=== PATIENT | female | born 1970 | race Two or more races ===

== ENCOUNTER → 2024-07-21 | Outpatient (CLI) | payer MEDICAID, SELFPAY ==
--- NOTE | 2024-07-21 15:22 | XR_ITS ---
EXAMINATION: Cervical spine, 5 views Technique: Cervical spine AP, AP odontoid, lateral, bilateral obliques, 5 views Exam date and time: July 21, 2024 1605 hours INDICATIONS: Neck pain beginning 3 months ago. FINDINGS: Adequate alignment cervical vertebral bodies Moderate disc narrowing C5-C6 with mild to moderate bilateral neural foraminal stenosis Intact odontoid No cervical fracture IMPRESSION: Moderate degenerative disc disease C5-C6 with bilateral mild to moderate neural foraminal stenosis at this level
== END | disposition home or self-care (01) ==
DX: M50.322 Other cervical disc degeneration at C5-C6 level (principal); M48.02 Spinal stenosis, cervical region
CPT/HCPCS: 72050

== ENCOUNTER → 2024-07-23 | Outpatient (CLI) | payer MEDICAID, SELFPAY ==
--- NOTE | 2024-07-23 14:15 | XR_ITS ---
Examination: Screening digital mammography, bilateral Computer aided detection 3-D breast Tomosynthesis, bilateral Date and time of exam: July 23, 2024 1355 hours Compared to mammograms dating to July 15, 2019 Indication: Screening Technique: Nonmagnified MLO, CC views of the breasts to been obtained, reconstructed from 3-D Tomosynthesis images. R2 computer aided detection program utilized for evaluation of suspicious masses and/or abnormal calcifications. 3-D Tomosynthesis images obtained. Findings: Scattered areas of fibroglandular density Benign calcifications. No interval suspicious masses Impression: BI-RADS category II: Benign Findings. Recommend 1 year follow-up mammogram.
== END | disposition home or self-care (01) ==
PROVIDERS: PCP Specialist; Referring Provider Specialist; Visit Provider Specialist
DX: Z12.31 Encounter for screening mammogram for malignant neoplasm of breast (principal); R92.323 Mammographic fibroglandular density, bilateral breasts; R92.1 Mammographic calcification found on diagnostic imaging of breast
CPT/HCPCS: 77063; 77067

== ENCOUNTER 2024-08-14 14:10 | Emergency (ER) | payer MEDICAID, SELFPAY ==
--- NOTE | 2024-08-14 14:14 | EDNOTE_ITS ---
ED General RME/HPI General Chief complaint: Shortness of Breath/Dyspnea Stated complaint: CHEST PAIN Arrival date/time: 08/14/24 14:10 Limitations: no limitations RME / HPI RME / HPI narrative: 54 year old female presents to the ED BIBA from home for evaluation of left shoulder and left sided chest pressure beginning today. Patient describes pain as pressure in sensation, rating as moderate, lasting only a few seconds. Accompanied by palpitations and feeling short of breath. Additionally complained of left facial and left arm numbness just prior to arriving to the ED. Medics state on examination there were no neurological deficits and patient reported improvement in symptoms shortly after arriving. Patient mentioned she has had shoulder pain for 3 months and is pending referral to see physical therapy. Denies any associated chest pain with shoulder pain before. Medics add the patient had multiple rhythm strips performed en route showing PVC's, no acute changes or ST elevation. No other associated symptoms or complaints reported. Related Data Allergies Allergy/AdvReac Type Severity Reaction Status Date / Time No Known Allergies Allergy Verified 08/14/24 15:16 Review of Systems Review of Systems Narrative Review of Systems: GEN: No fever, no chills, no weight loss EYES: No discharge, no visual changes, no pain HEENT: No ear pain, no congestion, no sore throat PULM: No shortness of breath, no cough, no congestion CV: +chest pain, + palpitations GI: No nausea, no vomiting, no diarrhea, no pain, no constipation : No frequency, no urgency, no dysuria MUSC/SKEL: +left shoulder pain, no back pain SKIN: No rash NEURO: No weakness, no headache ED Exam General Limitations: Present no limitations General appearance: Present alert and in no apparent distress Head Head exam: Present atraumatic, normocephalic and normal inspection Eye Eye exam: Present normal appearance, PERRL and EOMI ENT ENT exam: Present normal exam, normal oropharynx and mucous membranes moist Neck Neck exam: Present normal inspection, full ROM and trachea midline Chest Chest inspection: Present normal inspection and symmetric chest wall rise Respiratory Respiratory exam: Present normal lung sounds bilaterally Cardiovascular Cardiovascular exam: Present regular rate, normal rhythm and normal heart sounds Extremities Exam Extremities exam: Present normal inspection, full ROM and other (trigger points on the left trapezius, FROM of all joints ) Back Exam Back exam: Present normal inspection and full ROM Neurological Exam Neurological exam: Present alert, oriented X3 and CN II-XII intact Psychiatric Psychiatric exam: Present normal affect and normal mood Skin Skin exam: Present warm, dry, intact and normal color Course Quality Measures none Reevaluation(s) Reevaluation #1: I was made aware by EMS that the patient is wanting to leave AMA. I explained that we would placed orders for a cardiac work-up. The patient states she has not had any symptoms since she arrived and is feeling better. Patient states she is already connected with a station helper who is working her up, including a treadmill stress test. Says her appointment with station helper is in a few days and wants to go home. I spoke to her and her son, I explained the risks of possibly having a heart injury or heart attack and states she would rather wait to see her doctor. I have personally explained to the patient that choosing to do so may result in permanent bodily harm or . I discussed a great length that without further evaluation and monitoring there may be unforeseen circumstances and deterioration causing permanent bodily harm or as a result of their choice. The patient is alert, oriented and competent at this time. The patient states that they are aware of the serious risks as explained, but they continue to wish to leave against medical advice. Time: 14:58 [facility] Patient data External records reviewed:: [facility] previous records (Per EMR review, patient has no previous ED visits for review ) and EMS form Clinical information provided by:: patient and EMS Social determinants that could affect healthcare access:: none Patient has the following chronic illnesses:: hx of palpitations per patient How is presenting disease/condition affected by chronic disease/condition?: exacerbated by Evaluation data The following diagnostics were reviewed and interpreted by me:: EKG tracing(s) (Rhythm strips by EMS interpreted by me as noted below ) Lab and/or radiology exams considered but not ordered:: None Interpretation Summary: Rhythm strips from the field interpreted by me as noted below. 1st rhythm strip is sinus rhythm with occasional unifocal pvcs. 2nd rhythm strip @ 13:58 she had a similar strip with a lot of artifact. 3rd rhythm strip @ 13:59 she had a short run of bigeminy. The last strip shows sinus rhythm, rate 61, occasional pvcs, right axis deviation, HI is 0.156s, QRS 0.078s, no acute changes. Medications Medications considered but not ordered:: None Medication administrations:: None Consultations Consultation(s) initiated? (list below): No Diagnosis Differential Diagnosis ED Complaint MDM: Chest painn, angina, PVC's, dehydration, left shoulder pain, OH Most likely diagnosis given after review of the tests above:: Left shoulder pain Paresthesia Bigeminy chest pain Admission Indicated Admission indicated?: not indicated Explain why admission is indicated or not indicated:: Patient left against medical advise Admission Request Was there a request for admission?: No Disposition Plan Disposition Plan: other (specify) (patient left against medical advise ) Medical Decision Making Differential Diagnosis Differential Diagnosis: Chest painn, angina, PVC's, dehydration, left shoulder pain, OH Discharge Plan Plan Patient Disposition: Left Against Medical Advice Problem List Clinical Impression: Left shoulder pain, Paresthesia, Bigeminy, Chest pain Patient/Caregiver Discharge Instructions Print Language: Irish
[2024-08-14 15:11] VITALS: PULSE 72; RESP 18; O2SAT 98; BMI 28.3
== END 2024-08-14 15:42 | disposition left against medical advice (07) ==
PROVIDERS: Emergency Provider Emergency Medicine
DX: R07.89 Other chest pain (principal); M25.512 Pain in left shoulder; R20.2 Paresthesia of skin; R00.8 Other abnormalities of heart beat; Z53.29 Procedure and treatment not carried out because of patient's decision for other reasons
CPT/HCPCS: 99281

== ENCOUNTER 2024-09-29 09:30 | Outpatient (RCR) | payer MEDICAID, SELFPAY ==
--- NOTE | 2024-09-02 13:50 | PTNOTE_ITS ---
PT OP Initial Eval Patient Information Outpatient Physical Therapy Treatment Date: 09/02/24 Visit Reasons: Neck pain Medical Diagnosis: Neck Pain Treatment Dx #1: Neck Pain Start of Care: 09/02/24 Date of Onset: 3 months ago Smoking Status Smoking Status: Never smoker Initial Assessment Subjective: Pt is a 54 y/o female reports of neck pain with radicular pain down the arms. Pt notice intermittent numbness down to the elbow. Pt xray showed moderate DDD of the C5-C6 level. No MRI has been done thus far. Pt has limitation with gripping, lifitng, chores, self care, cooking, cleaning, and performing recreational acti vities. Objective: C/S AROM: all motions are WFL with end range pain into flexion and left sidebending BUE AROM: all motions are WFL BUE MMTs: grossly 4-/5 Scapula MMTs: grossly 3+/5 Assessment: Pt demonstrate neck pain with mobility deficits leading to difficulty with ADLs. Pt will attempt physical therapy if pain persist Pt will be refer back to provider for further consultation. Short Term and Custodial Goals 1) Decrease neck pain to 2/10 in 6 wks to be able to perform chores 2) Increase BUE MMTs grossly to 4/5 in 6 wks to be able to perform lifting activities 3) Increase scapula MMTs grossly to 4-/5 in 6 wks to be able to perform recreational activities 4) Indep with HEP Treatment Plan 1) Manual Therapy 2) Therapeutic Activities 3) Therapeutic Exercises 4) Modalities (ice, heat, traction) Frequency and Duration: 2 x wk for 6 wks Certification Dates: 09/02/24 to 12/02/24 Procedure Charges OP PT Eval Mod Complex 30 minutes: Yes
--- NOTE | 2024-09-08 10:04 | PT.ODAYNRPT ---
PT Outpatient Daily Note OP Daily Note Outpatient Physical Therapy Treatment Date: 09/08/24 Visit Reasons: Neck pain Subjective: Pt's neck is okay and continues to notice pain down the arms. Objective: Please see flow chart for list of ther ex performed Assessment: decrease c/s pain post PT session. Frequent cues to correct all exercises due to language barrier Plan: Continue with PT Length of Time (minutes) of Treatment: 30 Minutes Procedure Charges Traction Mechanical: Yes Therapeutic Exercise 15 minutes: Yes
--- NOTE | 2024-09-10 12:49 | PT.ODAYNRPT ---
PT Outpatient Daily Note OP Daily Note Outpatient Physical Therapy Treatment Date: 09/10/24 Visit Reasons: Neck pain Subjective: Pt's neck sore after last session. Pt feels so-so about the c/s traction. Objective: Please see flow chart for list of ther ex performed Assessment: exhibit increase levator scapulae and upper trape tone during stretches which improved post stretching. C/S traction was re-attempt with minimal results reported Plan: Continue with PT Length of Time (minutes) of Treatment: 30 Minutes Procedure Charges Traction Mechanical: Yes Therapeutic Exercise 15 minutes: Yes
--- NOTE | 2024-09-14 13:33 | PT.ODAYNRPT ---
PT Outpatient Daily Note OP Daily Note Outpatient Physical Therapy Treatment Date: 09/14/24 Visit Reasons: Neck pain Subjective: Pt's neck is okay. Pt still has pain. Pt prefers not to use c/s traction anymore due to not helping much Objective: Please see flow chart for list of ther ex performed Assessment: no c/s traction used today per Pt's request. Pt tolerate all exercises seems to be in a jackson. Pt cue to pace and cues to correct door stretch Plan: Continue with PT Length of Time (minutes) of Treatment: 30 Minutes Procedure Charges Therapeutic Exercise 30 minutes: Yes
--- NOTE | 2024-09-18 09:06 | PT.ODAYNRPT ---
PT Outpatient Daily Note OP Daily Note Outpatient Physical Therapy Treatment Date: 09/18/24 Visit Reasons: Neck pain Subjective: Pt's neck is better and last intense since she started physical therapy. Objective: Please see flow chart for list of ther ex performed Assessment: decrease upper trape and levator tone post stretching + heat Plan: Continue with PT Length of Time (minutes) of Treatment: 30 Minutes Procedure Charges Therapeutic Exercise 30 minutes: Yes
--- NOTE | 2024-09-23 09:06 | PT.ODAYNRPT ---
PT Outpatient Daily Note OP Daily Note Outpatient Physical Therapy Treatment Date: 09/23/24 Visit Reasons: Neck pain Subjective: Pt's neck is better. Pt really feels that the stretching with heat helps the pain. Objective: Please see flow chart for list of ther ex performed Assessment: tolerate exercises with minimal pain; improved c/s flexibility post PT. Plan: Continue with PT Length of Time (minutes) of Treatment: 30 Minutes Procedure Charges Therapeutic Exercise 30 minutes: Yes
--- NOTE | 2024-09-29 11:16 | PT.ODAYNRPT ---
PT Outpatient Daily Note OP Daily Note Outpatient Physical Therapy Treatment Date: 09/29/24 Visit Reasons: Neck pain Subjective: Pt's neck is better. Pt does not have any new concerns. Pt feels that physical therapy is helping. Objective: Please see flow chart for list of ther ex performed Assessment: cues to correct form with suboccipital stretching in sitting. Slowly improving with upper trape and levator scapulae tension post stretching Plan: Continue with PT Length of Time (minutes) of Treatment: 30 Minutes Procedure Charges Therapeutic Exercise 30 minutes: Yes
== END 2024-09-30 23:59 | disposition home or self-care (01) ==
LOC: CPTX 09:30
DX: M50.122 Cervical disc disorder at C5-C6 level with radiculopathy (principal)
CPT/HCPCS: 97012; 97110; 97162

== ENCOUNTER 2024-10-07 09:00 | Outpatient (RCR) | payer MEDICAID, SELFPAY ==
--- NOTE | 2024-10-01 09:09 | PT.ODAYNRPT ---
PT Outpatient Daily Note OP Daily Note Outpatient Physical Therapy Treatment Date: 10/01/24 Visit Reasons: Neck pain Subjective: Pt's neck feels less tight. Pt mentioned she can turn neck with less pain. Objective: Please see flow chart for list of ther ex performed Assessment: decrease upper trape and levator scapulae tension post PT session. improving c/s AROM Plan: Continue with PT Length of Time (minutes) of Treatment: 30 Minutes Procedure Charges Therapeutic Exercise 30 minutes: Yes
--- NOTE | 2024-10-07 10:01 | PT.ODS1RPT ---
PT OP Progress/Discharge Note Date of Service: 10/07/24 Progress Note/DC Note Progress Note/Discharge Note: DC Note Patient Information Visit Reasons: Neck pain Medical Diagnosis: Neck Pain Treatment Dx #1: Neck Pain Service Continue Service or Discharge: Discharge Discharge Date: 10/07/24 Status Subjective: Pt's neck is same. Pt continues to have numbness down the arms. Due to symptoms Pt has limitation with ADLs and will like to follow up with MD. Objective: C/S AROM: all motions are WFL BUE AROM: all motions are WFL BUE MMTs: grossly 4-/5 Scapula MMTs: grossly 3+/5 Assessment: Pt demonstrate functional c/s mobility and strength, however, no change in pain or radicular symptoms down the arms leading to difficulty with ADLs. Pt will no longer benefit from physical therapy due to minimal progress towards goals. Recommend c/s MRI to help rule in/out nature of pain. Pt was instructed on HEP last session and educated to continue exercises to maintain overall mobility. Pt performed all exercises safely, thank you for your referrals. Plan: D/C home with HEP and follow up with MD MCCANNN Recommend C/S MRI Procedure Charges Therapeutic Exercise 30 minutes: Yes
== END 2024-10-31 23:59 | disposition home or self-care (01) ==
LOC: CPTX 09:00
DX: M50.322 Other cervical disc degeneration at C5-C6 level (principal)
CPT/HCPCS: 97110

== ENCOUNTER → 2024-11-30 | Outpatient (CLI) | payer MEDICAID, SELFPAY ==
--- NOTE | 2024-11-30 13:00 | XR_ITS ---
Examination: MRI cervical spine without intravenous contrast Date and time of exam: November 30, 2024 1428 hours INDICATIONS: Neck pain radiating to the shoulders beginning 6 months ago Technique: Multiple axial and sagittal sections of the cervical spine to been obtained. T2 weighted sagittal sections, TR 3, 270, TE 117 T1-weighted sagittal sections, TR 500, TE 11 T1-weighted axial sections, TR 607, TE 12, axial sections TR 18, TE 27 and T2 weighted transverse sections, TR 3920, TE 122. Findings: Adequate alignment cervical vertebral bodies No cervical fracture Moderate disc narrowing posteriorly C5-C6 Diffuse cervical disc desiccation No localized enlargement cervical cord C2-C3 no disc protrusion C3-C4 no disc protrusion C4-C5 mild right neural foraminal stenosis C5-C6 4 mm central subarticular osteophyte disc complex, moderate right neural foraminal stenosis C6-C7 no disc protrusion C7-T1 no disc protrusion IMPRESSION: Moderate degenerative disc disease C5-C6 C5-C6 4 mm central subarticular osteophyte disc complex, moderate right neural foraminal stenosis
== END | disposition home or self-care (01) ==
LOC: SMRI 12:55
PROVIDERS: Referring Provider Internal Medicine; Visit Provider Internal Medicine
DX: M50.322 Other cervical disc degeneration at C5-C6 level (principal); M48.02 Spinal stenosis, cervical region; M25.78 Osteophyte, vertebrae
CPT/HCPCS: 72141

== ENCOUNTER → 2025-03-18 | Outpatient (CLI) | payer MEDICAID, SELFPAY ==
--- NOTE | 2025-03-18 15:48 | XR_ITS ---
EXAMINATION: Cervical spine, 7 views Technique: Cervical spine AP, AP odontoid, lateral, bilateral obliques,, standing flexion, standing extension lateral cervical spine 7 views Exam date and time: March 18, 2025, 1609 hours INDICATIONS: Neck pain beginning 6 months ago. FINDINGS: Adequate alignment cervical vertebral bodies No cervical fracture. Intact odontoid. Advanced degenerative disc disease C5-C6 with moderate bilateral neuroforaminal stenosis Adequate range of motion between flexion and extension. IMPRESSION: Advanced degenerative disc disease C5-C6 with moderate bilateral neural foraminal stenosis
== END | disposition home or self-care (01) ==
LOC: SDIM 15:37
PROVIDERS: Referring Provider Neurological Surgery; Visit Provider Neurological Surgery
DX: M50.322 Other cervical disc degeneration at C5-C6 level (principal); M48.02 Spinal stenosis, cervical region
CPT/HCPCS: 72050